=== PATIENT | male | born 1970 | race Caucasian/White ===

== ENCOUNTER 2016-12-05 06:10 | Emergency (ER) | payer OTHER ==
[~2016-12-05] VITALS: Ht 177.8 cm; Wt 90.7 kg
[~2016-12-05 06:10] MED LIST: IBUP-974 PO
[2016-12-05 06:22] VITALS: BP 146/99
--- NOTE | 2016-12-05 06:29 | NUR ---
PT TAKEN TO BED 4
--- NOTE | 2016-12-05 06:38 | NUR ---
PATIENT PRESENTS TO ED WITH c/o lower back pain on left side . PT DENIES N/V/D; SKIN IS PINK/WARM/DRY; AAOX4 WITH EVEN AND STEADY GAIT; LUNGS CLEAR BL; HR EVEN AND REGULAR; PT DENIES ANY FEVER, CP, SOB, OR COUGH AT THIS TIME; PATIENT STATES PAIN OF 8/10 AT THIS TIME; VSS; PATIENT POSITIONED FOR COMFORT; HOB ELEVATED; BEDRAILS UP X2; BED DOWN. ER MD MADE AWARE OF PT STATUS.
--- NOTE | 2016-12-05 06:57 | NUR ---
Dr. Cordoba evaluating patient at bedside.
[2016-12-05] MEDS ORDERED: CARISOPRODOL 350 MG TAB PO ONE (07:00)
[2016-12-05] MEDS ORDERED: KETOROLAC 60 MG/2 ML VIAL IM ONE (07:00)
--- NOTE | 2016-12-05 07:23 | NUR ---
Patient back from XRAY via wheelchair per tech.
--- NOTE | 2016-12-05 07:25 | NUR ---
PT REFUSED TORADOL IM ORDERED; STATED DOES NOT WANT SHOT; REQUESTED FOR ANOTHER PO MEDICATION; EDUCATED ON RISKS/BENEFITS OF MEDICATION; ER MD DR. DANIELS NOTIFIED; WILL CONTINUE TO MONITOR.
[2016-12-05] MEDS ORDERED: IBUPROFEN 800 MG TAB PO ONE (07:30)
[2016-12-05 08:09] VITALS: BP 147/101
--- NOTE | 2016-12-05 08:09 | NUR ---
Patient discharged with v/s stable. BP 147/101; PT DENIES HEADACHE, DIZZINESS, BLURRY VISION, OR ANY ACUTE DISTRESS AT THIS TIME; STATES RELIEF FROM MEDICATION ADMINISTERED; ER MD DR. DANIELS NOTIFIED OF PT BP; Written and verbal after care instructions given and explained.Patient alert, oriented and verbalized understanding of instructions. Ambulatory with steady gait. All questions addressed prior to discharge. ID band removed. Patient advised to follow up with PMD. Rx of MOTRIN 600MG TAB & SOMA 350MG given. Patient educated on indication of medication including possible reaction and side effects. Opportunity to ask questions provided and answered.
== END 2016-12-05 08:09 | disposition home or self-care (01) ==
LOC: MED 06:10
DX: S39.012A Strain of muscle, fascia and tendon of lower back, initial encounter (principal); I10 Essential (primary) hypertension; X50.0XXA Overexertion from strenuous movement or load, initial encounter; Y93.89 Activity, other specified; Y92.89 Other specified places as the place of occurrence of the external cause; Y99.8 Other external cause status
CPT/HCPCS: 72100; 99284; J1885